=== PATIENT | male | born 1955 | race Caucasian/White ===

== ENCOUNTER 2018-12-23 16:44 | Inpatient (IN) ==
[2018-12-23] MEDS ORDERED: Morphine Inj 4 MG/ML Vial IV.PUSH ONE ×2 (17:30→18:23)
[2018-12-23] MEDS ORDERED: Sod Chloride 0.9% Inj 1,000 ML IV.SIG ONE (17:30)
--- NOTE | 2018-12-23 17:33 | ED ---
HPI General Chief Complaint: Abdominal Pain Stated Complaint: Abd Pain Time Seen by Provider: 12/23/18 17:27 Source: patient Mode of arrival: ambulatory Limitations: no limitations History of Present Illness HPI narrative: Has not had fentanyl patch over the last 5 days for chronic pain MD complaint: Reports abdominal pain Onset (ago): day(s) Pain Consistency: constant Location: Reports LLQ Severity: moderate Quality: Reports aching and dull Migration to: Reports no migration Relieving factors: nothing Exacerbating factors: other (Palpation) Context: Denies sick contacts and recent surgery/procedure Associated symptoms: Reports denies other symptoms and diarrhea (Nonbloody) Related Data Home Medications Medication Instructions Recorded Confirmed alfuzosin 10 mg PO DAILY 11/21/18 12/23/18 fentanyl 1 patch TRANSDERMAL Q72H 11/21/18 12/23/18 gabapentin enacarbil [Horizant] 600 mg PO BID 11/21/18 12/23/18 meloxicam 15 mg PO DAILY 11/21/18 12/23/18 metoprolol succinate 50 mg PO DAILY 11/21/18 12/23/18 naloxegol [Movantik] 25 mg PO QAM 11/21/18 12/23/18 oxycodone-acetaminophen [Percocet] 1 tab PO Q6H PRN MDD 4 11/21/18 12/23/18 potassium chloride 20 meq PO DAILY 11/21/18 12/23/18 ranitidine HCl 300 mg PO DAILY 11/21/18 12/23/18 Allergies Allergy/AdvReac Type Severity Reaction Status Date / Time No Known Allergies Allergy Verified 12/23/18 16:52 Review of Systems ROS: all other systems reviewed are negative [facility] Medical History Medical History Chronic neck and back pain (Acute) Kidney stones (Acute) Pancreatitis (Acute) Skin cancer (Acute) History of hemochromatosis (Acute) History of high cholesterol (Acute) History of neuropathy (Acute) Hx of primary hypertension (Acute) Surgical History Surgical History History of tonsillectomy and adenoidectomy (Acute) Hx of appendectomy (Acute) Social History Social History Substance History: No History of Abuse Second Hand Smoke Exposure: No Smoking Status: Never smoker How Often Do You Have a Drink Containing Alcohol: 2 to 3 times a week Recent Travel in [place] within the Last 8 Weeks: No Recent Out of Country Travel within the Last 8 Weeks: No Immunization History Tetanus Immunization: <5 Years Tetanus Immunization Year if Known: 2019 Exam Narrative Exam Narrative: NONTOXIC EOMI, anicteric NO JVD NON LABORED RESPIRATIONS Tachycardia/pain SOFT TENDER epigastric/lower left quadrant No ecchymosis abdomen or flank No rebound Voluntary guarding No pulsatile mass No CVA tenderness PELVIS STABLE FROM EXTREMITIES NO LOWER EXTREMITY EDEMA FACIAL SYMMETRY STEADY GAIT, CLEAR SENTENCES AAOX3 Course Reevaluation(s) Reevaluation #1: History of alcohol abuse is was drinking regularly over the last couple days. Fentanyl chronic for history of hemochromatosis/thrombocytopenia 1840 pending admission, no new complaints. No signs of acute surgical abdomen 184 D/W AMANDA YANG MD to admit assume care [place] no new complaints Time: 18:24 Initial Documented Vital Signs Temperature 99 F 12/23/18 16:52 Pulse Rate 96 H 12/23/18 16:52 Respiratory Rate 14 12/23/18 16:52 Blood Pressure 162/91 H 12/23/18 16:52 Pulse Oximetry 98 12/23/18 16:52 Last Documented Vital Signs Temperature 99 F 12/23/18 17:51 Pulse Rate 106 H 12/23/18 17:51 Respiratory Rate 18 12/23/18 17:51 Blood Pressure 183/100 H 12/23/18 17:51 Pulse Oximetry 98 12/23/18 17:51 Medical Decision Making MDM Narrative Medical Screen Exam Complete: Yes Emergency Medical Condition: Yes Lab Data Result diagrams: 12/23/18 17:30 12/23/18 17:30 Lab Results 12/23/18 12/23/18 Range/Units 17:30 17:30 CBC w Diff Slide review pending WBC 12.2 H (4.0-11.0) th/mm3 RBC 4.88 (4.50-5.90) mil/mm3 Hgb 15.1 (13.0-17.0) gm/dL Hct 44.6 (39.0-51.0) % MCV 91.4 (80.0-100.0) fL MCH 31.0 (27.0-34.0) pg MCHC 33.9 (32.0-36.0) % RDW 14.1 (11.6-17.2) % Plt Count 121 L (150-450) th/mm3 MPV 7.8 (7.0-11.0) fL WBC Differential Manual diff final Seg Neuts % (Manual) 89 H (16-70) % Band Neuts % (Manual) 1 (0-6) % Lymphocytes % (Manual) 6 L (9-44) % Monocytes % (Manual) 4 (0-8) % Abs Neuts (Manual) 11.0 H (1.8-7.7) th/mm3 Differential Comment . Platelet Estimate Low L (Normal) Platelet Morphology Normal (Normal) Sodium 132 L (136-145) meq/L Potassium 3.6 (3.5-5.1) meq/L Chloride 99 (98-107) meq/L Carbon Dioxide 17.2 L (21.0-32.0) meq/L Anion Gap 16 H (5-15) meq/L BUN 12 (7-18) mg/dL Creatinine 1.10 (0.60-1.30) mg/dL Estimated GFR 68 L (>89) mL/min Random Glucose 143 H (74-106) mg/dL Calcium 8.3 L (8.5-10.1) mg/dL Total Bilirubin 0.5 (0.2-1.0) mg/dL AST 80 H (15-37) U/L ALT 58 (12-78) U/L Alkaline Phosphatase 66 (45-117) U/L Total Protein 7.7 (6.4-8.2) g/dL Albumin 3.9 (3.4-5.0) g/dL Lipase 3512 H (73-393) U/L Imaging Data Radiologist's impression: Abdomen/Pelvis CT 12/23/18 17:30 CONCLUSION: 1. Inflammatory change around the pancreas consistent with acute pancreatitis. 2. Changes of diverticulitis are not seen. 3. Nonobstructing right renal stones. Discharge Plan Discharge Disposition Patient Disposition: ED Admit(ED Internal Use Only) Discharge Condition Condition: Stable Discharge Details Diagnosis: Pancreatitis, Abdominal pain, Asymptomatic chronic venous hypertension, Alcohol abuse Physicians Team ED Provider: Osiel Lindsey Primary Care Provider: Luigi Espinoza Rxs /Orders / Referrals /Forms Prescriptions: No Action fentanyl 50 mcg/hr Patch 72 Hour 1 patch TRANSDERMAL Q72H RF: 0 metoprolol succinate 50 mg Tablet Extended Release 24 Hr 50 mg PO DAILY RF: 0 ranitidine HCl 300 mg Tablet 300 mg PO DAILY RF: 0 meloxicam 15 mg Tablet 15 mg PO DAILY RF: 0 oxycodone-acetaminophen [Percocet] 10-325 mg Tablet 1 tab PO Q6H MDD 4 PRN (Reason: Pain, Moderate) RF: 0 alfuzosin 10 mg Tablet Extended Release 24 Hr 10 mg PO DAILY RF: 0 gabapentin enacarbil [Horizant] 600 mg Tablet Extended Release 600 mg PO BID RF: 0 potassium chloride 20 mEq Tablet Extended Release 20 meq PO DAILY RF: 0 naloxegol [Movantik] 25 mg Tablet 25 mg PO QAM RF: 0 Status ED Status: Pending Admission
[2018-12-23 17:41] LABS: Hematocrit 44.6 % (39.0-51.0); Hemoglobin 15.1 gm/dL (13.0-17.0); Mean Corpuscular HGB Conc 33.9 % (32.0-36.0); Mean Corpuscular Volume 91.4 fL (80.0-100.0); Mean Platelet Volume 7.8 fL (7.0-11.0); Platelet Count 121 th/mm3 (150-450); Red Blood Count 4.88 mil/mm3 (4.50-5.90); Red Cell Distribution Width 14.1 % (11.6-17.2); White Blood Count 12.2 th/mm3 (4.0-11.0)
[2018-12-23 17:46] LABS: Chloride 99 meq/L (98-107); Potassium 3.6 meq/L (3.5-5.1); Sodium 132 meq/L (136-145)
[2018-12-23 17:50] LABS: Calcium 8.3 mg/dL (8.5-10.1)
[2018-12-23 17:51] LABS: Albumin 3.9 g/dL (3.4-5.0); Anion Gap 16 meq/L (5-15); Carbon Dioxide 17.2 meq/L (21.0-32.0); Glucose,Random 143 mg/dL (74-106)
[2018-12-23 17:54] LABS: Glomerular Filtration Rate 68 mL/min (>89)
[2018-12-23 17:55] LABS: Blood Urea Nitrogen 12 mg/dL (7-18); Total Protein 7.7 g/dL (6.4-8.2)
[2018-12-23 17:56] LABS: Alkaline Phosphatase 66 U/L (45-117); Lipase 3512 U/L (73-393)
[2018-12-23 18:07] LABS: Alanine Aminotransferase 58 U/L (12-78); Aspartate Aminotransferase 80 U/L (15-37)
[2018-12-23 18:15] LABS: Lymphocytes 6 % (9-44); Monocytes 4 % (0-8)
[2018-12-23 18:16] LABS: Platelet Morphology Normal (Normal)
--- NOTE | 2018-12-23 18:29 | CT ---
EXAM DATE: 12/23/2018 6:07 PM EST AGE/SEX: 63 years / Male INDICATIONS: Diffuse abdominal pain. Nausea and vomiting. Evaluate for diverticulitis. CLINICAL DATA: This is the patient's initial encounter. Patient reports that signs and symptoms have been present for 1 day and indicates a pain score of 9/10. MEDICAL/SURGICAL HISTORY: Renal calculi. Pancreatitis. Hypertension. Appendectomy. Tonsillec kacy. RADIATION DOSE: 8.95 CTDI (mGy) COMPARISON: No prior exams available for comparison. TECHNIQUE: Multiple contiguous axial images were obtained through the abdomen. Images were obtained using multiple row detector helical technique. Using automated exposure control and adjustment of the mA and/or kV according to patient size, radiation dose was kept as low as reasonably achievable to o btain optimal diagnostic quality images. DICOM format image data is available electronically for rev iew and comparison. FINDINGS: Lower Lungs: The visualized lower lungs are clear. Liver: The liver has a homogeneous density without space-occupying lesion. There is no dilation of th e biliary tree. Spleen: Homogeneous density without enlargement. Pancreas: There is diffuse inflammatory change seen around the pancreas. No calcifications are seen within the pancreas. The pancreatic duct does not appear dilated. Vascular calcifications are seen po sterior to the pancreas at the splenic artery. Kidneys: Normal in size and shape. No evidence of mass or hydronephrosis. There are several small le ss than 4 mm nonobstructing renal stone seen in the right kidney. Adrenal Glands: Unremarkable. Aorta: The aorta and proximal iliac vessels are grossly unremarkable without aneurysmal dilation. S cattered atherosclerotic calcifications are present. Bowel/Mesentery: The bowel loops are grossly unremarkable. The cecum and sigmoid colon have a normal configuration. Abdominal Wall: Intact. Retroperitoneum: No evidence of adenopathy in the retrocrural, para-aortic, or deep pelvic regions. Bladder: Contours are smooth. Reproductive Organs: No abnormal masses or calcifications seen. Inguinal: The inguinal region is unremarkable without evidence of adenopathy. Bony Structures: There is degenerative change in the lumbar spine. CONCLUSION: 1. Inflammatory change around the pancreas consistent with acute pancreatitis. 2. Changes of diverticulitis are not seen. 3. Nonobstructing right renal stones. Electronically signed by: Nayan Kramer MD Board Certified Radiologist 12/23/2018 6:27 PM EST
[2018-12-23] MEDS ORDERED: Acetaminophen 325 MG Tablet PO PRN (18:49)
[2018-12-23] MEDS ORDERED: oxyCODONE/Acetaminophen 10/325 Tablet PO PRN (18:49)
[2018-12-23 20:07] LABS: Bilirubin,Urine Negative (Negative); Clarity,Urine Clear (Clear); Color,Urine Yellow (Yellw/Straw); Glucose,Urine (UA) Negative (Negative); Leukocyte Esterase,Urine Negative (Negative); Nitrite,Urine Negative (Negative); PH,Urine 5.5 (5.0-8.5); Urobilinogen,Urine 0.2 mg/dL (Less than 2)
[2018-12-23 20:13] LABS: Amorphous Sediment,Urine Rare /hpf; Mucus,Urine Few /lpf (Occasional)
[2018-12-23] MEDS: Sod Chloride 0.9% Inj 1,000 ML IV.CONT SCH (21:26)
[2018-12-23] MEDS: Morphine Inj 4 MG/ML Vial IV.PUSH PRN (21:27)
[2018-12-24] MEDS: Morphine Inj 4 MG/ML Vial IV.PUSH PRN ×5 (01:29→20:12)
[2018-12-24] MEDS: Sod Chloride 0.9% Inj 1,000 ML IV.CONT SCH (06:29)
[2018-12-24 06:40] LABS: Baso % (Auto) 0.1 % (0.0-2.0); Eos % (Auto) 0.3 % (0.0-4.0); Hematocrit 43.6 % (39.0-51.0); Hemoglobin 14.8 gm/dL (13.0-17.0); Lymph # (Auto) 0.9 th/mm3 (1.0-4.8); Lymph % (Auto) 10.1 % (9.0-44.0); Mean Corpuscular Hemoglobin 30.7 pg (27.0-34.0); Mean Corpuscular Volume 90.5 fL (80.0-100.0); Mean Platelet Volume 7.9 fL (7.0-11.0); Mono # (Auto) 0.4 th/mm3 (0.0-0.9); Neut # (Auto) 7.5 th/mm3 (1.8-7.7); Neut % (Auto) 84.5 % (16.0-70.0); Platelet Count 109 th/mm3 (150-450); Red Blood Count 4.81 mil/mm3 (4.50-5.90); Red Cell Distribution Width 13.9 % (11.6-17.2); White Blood Count 8.8 th/mm3 (4.0-11.0)
[2018-12-24 06:41] LABS: Chloride 105 meq/L (98-107); Potassium 3.1 meq/L (3.5-5.1); Sodium 138 meq/L (136-145)
[2018-12-24 06:48] LABS: Albumin 3.6 g/dL (3.4-5.0); Anion Gap 10 meq/L (5-15); Blood Urea Nitrogen 8 mg/dL (7-18); Calcium 7.7 mg/dL (8.5-10.1); Glucose,Random 120 mg/dL (74-106)
[2018-12-24 06:51] LABS: Alanine Aminotransferase 42 U/L (12-78); Aspartate Aminotransferase 58 U/L (15-37); Glomerular Filtration Rate 81 mL/min (>89)
[2018-12-24 06:54] LABS: Alkaline Phosphatase 57 U/L (45-117)
[2018-12-24 06:55] LABS: Lipase 3644 U/L (73-393)
--- NOTE | 2018-12-24 08:25 | P.HPIM ---
History of Present Illness Primary Care Physician: Luigi Espinoza Chief Complaint: Abdominal pain History of Present Illness: 63-year-old male with known history of hypertension, hyperlipidemia, history of pancreatitis, history of hemochromatosis, chronic neck and back pain, chronic narcotic use who presented to hospital because of abdominal pain. Patient states that his discomfort started 3 days ago. He states that he coughed really hard and he thought his kidneys moved and since then he has been experiencing lower abdominal pain which progressively got worse to a 10/10 on a pain scale. Patient does have history of kidney stones so he thought that that was his problem so he came to emergency department for evaluation. Patient did have workup done and found to have elevated lipase level with CT finding of pancreatitis. Patient was recommend admission in the hospital with IV fluids, pain control, bowel rest. Upon evaluating patient and his pain is located in his lower abdomen. He denies any nausea, vomiting, diarrhea, constipation, melena, hematochezia. Patient indicates that there has been a problem with him getting his fentanyl patch and he has been without it. He also thought he may be gone through withdrawals because he has not been able to use his fentanyl patch. Patient indicates that he has been drinking more alcohol than usual. Indicates that he usually drinks 1-2 times a week. However he has increased the amount of usage over the last week. He indicates that he has done drinking at this time. Inpatient Certification Inpatient Certification: I certify that the inpatient services were ordered in accordance with Medicare regulations governing the order. This includes certification that hospital inpatient services are reasonable and necessary and in the case of services not specified as inpatient-only under 42 CFR 419.22(n), that they are appropriately provided as inpatient services in accordance to with the 2-midnight benchmark under 43 CFR 412.3(e) Estimated Total Length of Stay (Days): 2 Plans for Post Hospital Care: Home Review of Systems Review of Systems: all other systems reviewed are negative Gastrointestinal: Reports abdominal pain PMFSH Medical History Medical History Chronic neck and back pain (Acute) Kidney stones (Acute) Pancreatitis (Acute) Skin cancer (Acute) History of hemochromatosis (Acute) History of high cholesterol (Acute) History of neuropathy (Acute) Hx of primary hypertension (Acute) Surgical History Surgical History History of tonsillectomy and adenoidectomy (Acute) Hx of appendectomy (Acute) Family History Family History Father Family history of brain aneurysm Mother History of cancer Social History Social History Substance History: No History of Abuse Second Hand Smoke Exposure: No Smoking Status: Never smoker How Often Do You Have a Drink Containing Alcohol: 2 to 3 times a week Recent Travel in [facility] within the Last 8 Weeks: No Recent Out of Country Travel within the Last 8 Weeks: No Immunization History Tetanus Immunization: <5 Years Tetanus Immunization Year if Known: 2018 Hx Influenza Vaccine This Season: Yes Medications and Allergies Allergies Allergy/AdvReac Type Severity Reaction Status Date / Time No Known Allergies Allergy Verified 12/23/18 16:52 Home Medications Medication Instructions Recorded Confirmed Type alfuzosin 10 mg PO DAILY 11/21/18 12/23/18 History fentanyl 1 patch TRANSDERMAL Q72H 11/21/18 12/23/18 History gabapentin enacarbil [Horizant] 600 mg PO BID 11/21/18 12/23/18 History meloxicam 15 mg PO DAILY 11/21/18 12/23/18 History metoprolol succinate 50 mg PO DAILY 11/21/18 12/23/18 History naloxegol [Movantik] 25 mg PO QAM 11/21/18 12/23/18 History oxycodone-acetaminophen [Percocet] 1 tab PO Q6H PRN MDD 4 11/21/18 12/23/18 History potassium chloride 20 meq PO DAILY 11/21/18 12/23/18 History ranitidine HCl 300 mg PO DAILY 11/21/18 12/23/18 History Active Medications: Active Medications Acetaminophen (Tylenol) 650 mg PO Q4H PRN PRN Reason: Temp > 100.4 Al Hydroxide/Mg Hydroxide (Milk Of Magnesia Liq) 30 ml PO Q12H PRN PRN Reason: Mild Constipation Enalaprilat (Vasotec Inj) 1.25 mg IV.PUSH Q6H PRN PRN Reason: SBP>160, DBP>90 Last Admin: 12/24/18 01:28 Dose: 1.25 mg Sodium Chloride (Ns Inj) 1,000 mls @ 100 mls/hr IV.CONT .Q10H GILL Last Admin: 12/24/18 06:29 Dose: 100 mls/hr Morphine Sulfate (Morphine Inj) 4 mg IV.PUSH Q4H PRN PRN Reason: pain 1 to 10 Last Admin: 12/24/18 06:29 Dose: 4 mg Ondansetron HCl (Zofran Inj) 4 mg IV.PUSH Q6H PRN PRN Reason: NAUSEA OR VOMITING Last Admin: 12/24/18 06:29 Dose: 4 mg Sodium Chloride (Ns Flush) 2 ml IV.FLUSH PRN PRN PRN Reason: FLUSH AFTER USING IV ACCESS Sodium Chloride (Ns Flush) 2 ml IV.FLUSH BID GILL Last Admin: 12/23/18 21:26 Dose: Not Given Sodium Chloride (Ns Flush) 2 ml IV.FLUSH PRN PRN PRN Reason: FLUSH AFTER USING IV ACCESS Physical Exam Vital signs: Vital Signs 12/23/18 16:52 12/23/18 17:51 12/23/18 19:46 Temperature 99 F 99 F Pulse Rate 96 H 106 H Respiratory Rate 14 18 18 Blood Pressure 162/91 H 183/100 H Pulse Oximetry 98 98 12/23/18 19:54 12/23/18 20:00 12/24/18 00:00 Temperature 98.9 F 98.9 F Pulse Rate 88 109 H 109 H Respiratory Rate 16 16 18 Blood Pressure 189/88 H 160/80 H 162/81 H Pulse Oximetry 99 99 100 12/24/18 04:00 Temperature 99.8 F H Pulse Rate 100 H Respiratory Rate 16 Blood Pressure 132/81 Pulse Oximetry 97 Intake & Output 12/23/18 12/24/18 12/24/18 18:59 06:59 18:59 Intake Total 1000 / 1000 1000 / 1000 Output Total 400 / 400 Balance 1000 / 1000 600 / 600 Weight 72.8 kg 72.9 kg Intake: IV 1000 / 1000 1000 / 1000 NS Inj 1,000 ML @ 100 mls/hr IV 1000 / 1000 .CONT .Q10H GILL Rx#:[id number] NS Inj 1,000 ML @ Wide Open IV. 1000 / 1000 SIG BOLUS ONE Rx#:[id number] Output: Urine 400 / 400 Other: # Voids 1 Date of Last Bowel Movement 12/23/18 Weight On Admission 72.8 kg Narrative: GENERAL: Well-developed, well-nourished, in no acute distress. alert and orientated HEENT: Head is normocephalic without any lesions or masses noted. Facial features are symmetric. Eyes: Pupils equal round reactive to light. Extraocular muscles are intact. Conjunctivae were clear. Oropharyngeal: Pharynx without any erythema edema. Tongue is midline without deviation. Buccal mucosa is moist without any masses or lesions NECK: Supple without any masses. Trachea midline no deviation. No JVD, no bruits are appreciated CARDIAC: Regular rhythm, regular rate. S1/S2 are heard. No murmurs gallops or rubs. LUNGS: Clear to auscultation bilaterally. No wheeze, rhonchi or rales. No use of accessory muscles on inspiration or expiration. ABDOMEN: Soft, tenderness noted in the bilateral lower quadrants. Nondistended. Bowel sounds heard in all 4 quadrants. No organomegaly or masses. Negative rebound, positive guarding EXTREMITIES: No edema, pulses are equal bilaterally. No cyanosis or clubbing NEUROLOGY: Mood and affect appear appropriate. Cranial nerves II through XII grossly intact. Muscle strength 5/5 in upper and lower extremities bilaterally. Deep tendon reflexes are 2+ in upper and lower extremities bilaterally. Results Labs CBC & Chem 7: 12/24/18 05:40 12/24/18 05:40 Imaging Impressions Abdomen/Pelvis CT 12/23/18 17:30 CONCLUSION: 1. Inflammatory change around the pancreas consistent with acute pancreatitis. 2. Changes of diverticulitis are not seen. 3. Nonobstructing right renal stones. Caprini VTE Risk Assessment Caprini VTE Risk Assessment: No/Low Risk (score <= 1) Caprini Risk Assessment Model: Point Value = 1 Point Value = 2 Point Value = 3 Point Value = 5 Age 41-60 Minor surgery BMI > 25 kg/m2 Swollen legs Varicose veins or History of unexplained or recurrent spontaneous Oral contraceptives or hormone replacement Sepsis (< 1 month) Serious lung disease, including pneumonia (< 1 month) Abnormal pulmonary function Acute myocardial infarction Congestive heart failure (< 1 month) History of inflammatory bowel disease Medical patient at bed rest Age 61-74 Arthroscopic surgery Major open surgery (> 45 min) Laparoscopic surgery (> 45 min) Malignancy Confined to bed (> 72 hours) Immobilizing plaster cast Central venous access Age >= 75 History of VTE Family history of VTE Factor V Leiden Prothrombin [id number] Lupus anticoagulant Anticardiolipin antibodies Elevated serum homocysteine Heparin-induced thrombocytopenia Other congenital or acquired thrombophilia Stroke (< 1 month) Elective arthroplasty Hip, pelvis, or leg fracture Acute spinal cord injury (< 1 month) Prophylaxis Regimen: Total Risk Factor Score Risk Level Prophylaxis Regimen 0-1 Low Early ambulation 2 Moderate Order ONE of the following: *Sequential Compression Device (SCD) *Heparin 5000 units SQ BID 3-4 Higher Order ONE of the following medications: *Heparin 5000 units SQ TID *Enoxaparin/Lovenox 40 mg SQ daily (WT < 150 kg, CrCl > 30 mL/min) *Enoxaparin/Lovenox 30 mg SQ daily (WT < 150 kg, CrCl > 10-29 mL/min) *Enoxaparin/Lovenox 30 mg SQ BID (WT < 150 kg, CrCl > 30 mL/min) AND/OR *Sequential Compression Device (SCD) 5 or more Highest Order ONE of the following medications: *Heparin 5000 units SQ TID (Preferred with Epidurals) *Enoxaparin/Lovenox 40 mg SQ daily (WT < 150 kg, CrCl > 30 mL/min) *Enoxaparin/Lovenox 30 mg SQ daily (WT < 150 kg, CrCl > 10-29 mL/min) *Enoxaparin/Lovenox 30 mg SQ BID (WT < 150 kg, CrCl > 30 mL/min) AND *Sequential Compression Device (SCD) Assessment and Plan Plan Acute pancreatitis Unknown etiology at this time. No significant liver enzyme elevation to indicate gallstone pancreatitis. Patient has been drinking more alcohol than usual, possible alcohol pancreatitis Continue n.p.o. status Continue IV fluids Continue pain control Continue to trend lipase level Hypertension, hyperlipidemia, history of hemochromatosis PRN Vasotec until patient is able to tolerate by mouth Resume patient's home medications once able tolerate p.o. Chronic pain with chronic narcotic use Patient is on morphine for pain control at this time We will resume patient's home medications once pancreatitis improves Alcohol use Start CIWA protocol Start thiamine/folic acid Monitor for withdrawal symptoms Thrombocytopenia Could be secondary to chronic alcohol use, alcohol liver disease Continue monitor platelet count Hyperglycemia Obtain hemoglobin A1c Start Accu-Cheks with sliding scale insulin Hypokalemia Change IV fluids with KCl Give KCl 20 mg IV x1 DVT prevention Sequential compression devices Discussed Condition With: Patient, nursing staff, Dr. Rizo H&P: Quality VTE Deep Vein Thrombosis/Pulmonary Embolism Present on Admission: No
[2018-12-24] MEDS ORDERED: LORazepam 1 MG Tablet PO PRN (08:36)
[2018-12-24] MEDS ORDERED: Haloperidol Inj 5 MG/ML Ampul IV.PUSH PRN (08:36)
[2018-12-24] MEDS ORDERED: Dextrose 50% in Water 50 ML Vial IV.PUSH PRN (08:38)
[2018-12-24] MEDS ORDERED: Potassium Chlor 20 mEq Premix 20 MEQ/100 ML PIGGYBACK IV.SIG ONE (08:41)
[2018-12-24] MEDS: Multivitamin Inj 10 ML, Thiamine Inj 100 MG, Folic Acid Inj 1 MG in Sodium Chloride 0.4... IV.SIG SCH ×2 (09:42→11:40)
[2018-12-24] MEDS: Insulin NovoLOG Aspart Correctional Sugar Inj SQ SCH ×3 (11:41→20:14)
[2018-12-24 12:54] LABS: Hemoglobin A1c 5.4 % (4.3-6.0)
[2018-12-25] MEDS: Morphine Inj 4 MG/ML Vial IV.PUSH PRN ×2 (01:57→06:04)
[2018-12-25 07:08] LABS: Baso # (Auto) 0.1 th/mm3 (0.0-0.2); Baso % (Auto) 0.8 % (0.0-2.0); Chloride 107 meq/L (98-107); Eos # (Auto) 0.1 th/mm3 (0.0-0.4); Eos % (Auto) 1.3 % (0.0-4.0); Hematocrit 36.7 % (39.0-51.0); Hemoglobin 12.2 gm/dL (13.0-17.0); Lymph # (Auto) 0.7 th/mm3 (1.0-4.8); Lymph % (Auto) 10.3 % (9.0-44.0); Mean Corpuscular HGB Conc 33.3 % (32.0-36.0); Mean Corpuscular Hemoglobin 30.5 pg (27.0-34.0); Mean Corpuscular Volume 91.6 fL (80.0-100.0); Mean Platelet Volume 7.9 fL (7.0-11.0); Mono # (Auto) 0.4 th/mm3 (0.0-0.9); Mono % (Auto) 6.2 % (0.0-8.0); Neut # (Auto) 5.6 th/mm3 (1.8-7.7); Neut % (Auto) 81.4 % (16.0-70.0); Platelet Count 84 th/mm3 (150-450); Potassium 3.6 meq/L (3.5-5.1); Red Blood Count 4.01 mil/mm3 (4.50-5.90); Red Cell Distribution Width 14.4 % (11.6-17.2); Sodium 137 meq/L (136-145); White Blood Count 6.9 th/mm3 (4.0-11.0)
[2018-12-25 07:14] LABS: Calcium 7.6 mg/dL (8.5-10.1)
[2018-12-25 07:25] LABS: Alanine Aminotransferase 21 U/L (12-78); Albumin 2.7 g/dL (3.4-5.0); Alkaline Phosphatase 43 U/L (45-117); Anion Gap 6 meq/L (5-15); Aspartate Aminotransferase 26 U/L (15-37); Blood Urea Nitrogen 8 mg/dL (7-18); Carbon Dioxide 24.5 meq/L (21.0-32.0); Glomerular Filtration Rate Greater Than 89 mL/min (>89); Glucose,Random 95 mg/dL (74-106); Lipase 1364 U/L (73-393)
[2018-12-25 08:07] LABS: Platelet Morphology Normal (Normal)
--- NOTE | 2018-12-25 08:29 | P.PNIM ---
Subjective Interval history: Otitis. Patient states that his abdominal pain is much improved. He was given a shot for nausea and vomiting last night and developed sudden onset of pain and discomfort that went all the way from his lower abdomen up into his chest. EKG and troponins were done at that time which were unremarkable. Patient is asymptomatic at this time. He states that he still has some abdominal distention. But the pain is significantly improved. Discussed with him we will advance the diet today and if he continues to remain stable anticipate discharge home. Vital signs are stable, patient remains afebrile. Physical Exam Vital signs: Vital Signs 12/24/18 12:00 12/24/18 16:00 12/24/18 20:00 Temperature 98.6 F 96.9 F L 100.2 F H Pulse Rate 121 H 134 H 114 H Respiratory Rate 20 20 18 Blood Pressure 127/86 130/84 142/95 H Pulse Oximetry 98 96 94 L 12/25/18 00:00 Temperature 99.8 F H Pulse Rate 80 Respiratory Rate 18 Blood Pressure 125/77 Pulse Oximetry 98 Intake & Output 12/24/18 12/25/18 12/25/18 18:59 06:59 18:59 Intake Total 971.2 / 971.2 1500 / 1500 Output Total 150 / 150 Balance 821.2 / 821.2 1500 / 1500 Weight 74.8 kg Intake: IV 911.2 / 911.2 1500 / 1500 NS + KCl 20 mEq Inj 1,000 ML @ 1500 / 1500 100 mls/hr IV.CONT .Q10H GILL Rx #:[id number] NS Inj 1,000 ML @ 100 mls/hr IV 300 / 300 .CONT .Q10H GILL Rx#:[id number]-12 Inj 10 ML Thiamine Inj 511.2 / 511.2 100 MG Folvite Inj 1 MG In 1/2 Normal Saline Inj 500 ML @ 127. 8 mls/hr IV.SIG DAILY GILL Rx#: [id number] KCl 20 mEq Premix Inj 20 meq In 100 / 100 100 ml @ 50 mls/hr IV.SIG ONCE ONE Rx#:[id number] Oral 60 / 60 Output: Urine 150 / 150 Other: # Voids 1 2 Date of Last Bowel Movement 12/23/18 12/23/18 Narrative: GENERAL: Well-developed, well-nourished, in no acute distress. alert and orientated HEENT: Head is normocephalic without any lesions or masses noted. Facial features are symmetric. Eyes: Extraocular muscles are intact. Conjunctivae were clear. NECK: Supple without any masses. Trachea midline no deviation. No JVD, CARDIAC: Regular rhythm, regular rate. S1/S2 are heard. No murmurs gallops or rubs. LUNGS: Clear to auscultation bilaterally. No wheeze, rhonchi or rales. No use of accessory muscles on inspiration or expiration. ABDOMEN: Soft, nontender today. Nondistended. Bowel sounds heard in all 4 quadrants. No organomegaly or masses. Negative rebound, negative guarding EXTREMITIES: No edema, pulses are equal bilaterally. No cyanosis or clubbing NEUROLOGY: Mood and affect appear appropriate. Cranial nerves II through XII grossly intact. Moving all extremities, speech is clear Results Labs CBC & Chem 7: 12/25/18 06:19 12/25/18 06:19 Assessment and Plan Plan Acute pancreatitis, resolved Unknown etiology at this time. No significant liver enzyme elevation to indicate gallstone pancreatitis. Patient has been drinking more alcohol than usual, possible alcohol pancreatitis Advance to clear liquid diet Continue IV fluids Continue pain control Triglyceride level is elevated Lipase levels continue to improve Patient has significant improvement. He is asymptomatic. Tolerating diet without any complications. Patient is very eager to go home. We will plan discharge accordingly. Hypertension, hyperlipidemia, history of hemochromatosis Resume patient's home medications Vasotec as needed Chronic pain with chronic narcotic use Patient is on morphine for pain control at this time Resume home medication Alcohol use CIWA protocol, CIWA score is 0-1 Continue thiamine/folic acid Monitor for withdrawal symptoms Thrombocytopenia, appears to be stable and reviewed medical records Could be secondary to chronic alcohol use, alcohol liver disease Continue monitor platelet count Hyperglycemia Hemoglobin A1c 5.4 Continue Accu-Cheks with sliding scale insulin Hypokalemia, resolved Changed IV fluids with KCl Resume home medication DVT prevention Sequential compression devices Discussed Condition With: Patient, nursing staff, Dr. Rizo Discharge Planning: Patient originally anticipated to need at Least 2 midnights for recovery, but his overall assessment and status improved faster than expected. Discharge home in stable condition Activity: Ad rasheeda. Diet: Healthy heart diet Medication per medication reconciliation Follow-up with primary medical doctor in 1 week Progress Note: Quality VTE Deep Vein Thrombosis/Pulmonary Embolism Present on Admission: No
[2018-12-25] MEDS ORDERED: oxyCODONE/Acetaminophen 10/325 Tablet PO PRN (08:31)
[2018-12-25] MEDS ORDERED: Morphine Inj 4 MG/ML Vial IV.PUSH PRN (08:32)
--- NOTE | 2018-12-25 08:52 | ECG ---
Date Performed: 12/24/2018 Time Performed: 21:52:28 PTAGE: 63 years EKG: SINUS TACHYCARDIA ABNORMAL RHYTHM ECG NO PREVIOUS TRACING DOCTOR: Wayne Escobar Interpretating Date/Time 12/25/2018 08:50:14
[2018-12-25] MEDS: Insulin NovoLOG Aspart Correctional Sugar Inj SQ SCH ×2 (09:51→13:12)
[2018-12-25] MEDS ORDERED: MOVANTIK 25 MG PO SCH (10:00)
[2018-12-25] MEDS ORDERED: HORIZANT 600 MG PO SCH (10:00)
[2018-12-25] MEDS ORDERED: Famotidine 20 MG Tablet PO SCH (10:00)
[2018-12-25] MEDS: Multivitamin Inj 10 ML, Thiamine Inj 100 MG, Folic Acid Inj 1 MG in Sodium Chloride 0.4... IV.SIG SCH (10:20)
[2018-12-25 13:54] VITALS: BP 137/91; PULSE 101; RESP 20; TEMP 96.7; O2SAT 93
== END 2018-12-25 14:28 | disposition home or self-care (01) | DRG 440 ==
LOC: PHED 16:44 → PHEDA 18:44 → PH3 20:42
PROVIDERS: ADMIT Hospitalist; ATTEND Hospitalist
CPT/HCPCS: 74176; 80053; 81001; 82948; 82962; 83036; 83690; 84478; 84484; 85025; 90761; 90774; 90775; 93005; 96361; 96374; 96375; 99285; C8952; J2270; J2405; J3411; J3480; J7030